=== PATIENT | female | born 1980 | race Caucasian/White ===

== ENCOUNTER 2019-03-18 11:01 | Emergency (ER) | payer OTHER ==
[~2019-03-18] VITALS: Ht 154.9 cm; Wt 83.9 kg
[2019-03-18] MEDS ORDERED: CYCL10 PO (11:42)
[2019-03-18] MEDS ORDERED: IBUP800 PO (11:42)
[2019-03-18] MEDS ORDERED: HYDR1TAB94 PO (11:42)
== END 2019-03-18 11:47 | disposition home or self-care (01) ==
LOC: ER 11:01
DX: S39.012A Strain of muscle, fascia and tendon of lower back, initial encounter (principal); X58.XXXA Exposure to other specified factors, initial encounter; Z79.899 Other long term (current) drug therapy; F17.200 Nicotine dependence, unspecified, uncomplicated